=== PATIENT | male | born 1950 | race Caucasian/White ===

== ENCOUNTER 2023-11-08 07:42 | Outpatient (CLI) | payer MEDICARE, SELFPAY ==
--- NOTE | 2023-11-08 08:00 | CT_ITS ---
Patient: KENDALL BRICE Facility:?[facility] Patient ID:?[id number] Site Patient ID:?[id number]. Site :?[id number] Study:?CT-ST Neck w/ 104cc fileip-210-3/15/2024 9:57:09 AM Ordering Physician:?Ramirez Piña Final Report: INDICATION: Fullness of the left vocal cord. History of laryngeal tear. COMPARISON: 12/14/2020. TECHNIQUE: CT soft tissue neck with IV contrast. Isovue-370, 104 cc. FINDINGS: Normal bilateral parotid and submandibular glands. Normal thyroid gland. No enlarged cervical lymph nodes bilaterally. No supraclavicular superior mediastinal adenopathy. Nasopharynx and oropharynx are clear. No inflammation within the parapharyngeal fat pads are retropharyngeal space. Normal thickness of the epiglottis. Normal glottis with symmetric vocal cords. No asymmetry, soft tissue mass or mucosal submucosal thickening of the larynx. Airway is widely patent. Lung apices are clear. Normal alignment of the cervical spine. Cervical spondylosis. No prevertebral soft tissue swelling. Visualized paranasal sinuses are clear. Postoperative changes of left canal wall up mastoidectomy. IMPRESSION: 1. No interval change 2. No adenopathy. 3. Normal deep soft tissues of the neck. 4. No prevertebral soft tissue swelling. Cervical spondylosis. Please note that all CT scans at this facility use dose modulation, iterative reconstruction, and/or weight-based dosing when appropriate to reduce radiation dose to as low as reasonably achievable. Dictated by Dwayne Joiner MD @ 11/09/2023 8:42:26 PM Signed by:?Dwayne Joiner MD @11/09/2023 8:42:26 PM (Electronic Signature)
[2023-11-08 08:17] LABS: Creatinine* 0.9 mg/dL (0.5-1.5); Estimated Glomerular Filt Rate 91 ml/min
== END 2023-11-08 07:43 | disposition home or self-care (01) ==
LOC: CT 07:42
PROVIDERS: Visit Provider Otolaryngology
DX: J38.7 Other diseases of larynx (principal)
CPT/HCPCS: 36415; 70491; 82565; Q9967